=== PATIENT | male | born 1970 | race African-American/Black ===

== ENCOUNTER 2017-11-15 05:42 | Emergency (ER) | payer SELFPAY ==
[2017-11-15] MEDS: predniSONE 10 MG TABLET PO (06:28)
== END 2017-11-15 06:46 | disposition home or self-care (01) ==
LOC: ER 05:42
DX: S16.1XXA Strain of muscle, fascia and tendon at neck level, initial encounter (principal); R03.0 Elevated blood-pressure reading, without diagnosis of hypertension; F17.210 Nicotine dependence, cigarettes, uncomplicated; X58.XXXA Exposure to other specified factors, initial encounter; Y93.89 Activity, other specified; Y99.8 Other external cause status; Y92.89 Other specified places as the place of occurrence of the external cause
CPT/HCPCS: 99283; J7512